=== PATIENT | male | born 1945 | race Caucasian/White ===

== ENCOUNTER → 2017-04-09 14:35 | Outpatient (CLI) | payer MEDICARE | END | disposition home or self-care (01) | LOC: D.CT 14:35 | DX: R42 Dizziness and giddiness (principal) ==

== ENCOUNTER → 2018-04-09 12:14 | Outpatient (CLI) | payer MEDICARE | END | disposition home or self-care (01) | LOC: D.CT 12:14 | DX: N28.1 Cyst of kidney, acquired (principal) ==